=== PATIENT | female | born 1995 | race Caucasian/White ===

== ENCOUNTER 2018-04-23 18:13 | Emergency (ER) | payer OTHER ==
[2018-04-23 19:14] LABS: Urine Appearance Clear; Urine Blood Negative (Negative); Urine Color Straw; Urine Ketones Negative (Negative); Urine Protein Negative (Negative); Urine Specific Gravity 1.001 (1.010-1.030); Urine Urobilinogen Negative (Negative)
[2018-04-23 19:24] LABS: ABS Basophils 0 10^3/ul (0-0.2); ABS Eosinophils 0.1 10^3/ul (0-0.6); ABS Lymphocytes 2.2 10^3/ul (1.0-4.8); ABS Monocytes 0.9 10^3/ul (0-0.8); ABS Neutrophils 3.5 10^3/ul (1.5-7.7); ABS Nucleated RBC 0 10^3/ul; Eosinophil % 1.8 % (0-6); Hematocrit 43 % (35-47); Lymphocyte % 33.1 % (25-47); Mean Corpuscular HGB Conc 35 g/dl (31-36); Mean Corpuscular Hemoglobin 31 pg (27-31); Mean Corpuscular Volume 87 fL (80-97); Mean Platelet Volume 7.1 um3 (7.4-10.4); Nucleated Red Blood Cells % 0.1; Platelet Count 233 10^3/ul (150-450); Red Blood Count 4.93 10^6/ul (4.00-5.40); Red Cell Distribution Width 13 % (10.5-15); White Blood Count 6.7 10^3/ul (3.5-10.8)
--- NOTE | 2018-04-23 19:25 | ED ---
Abdominal Pain/Female - HPI Summary HPI Summary: 23-year-old female presents ER with complaints of 6 days of diarrhea. Denies any noticeable blood in diarrhea. Patient was seen in her primary care office where a stool culture was obtained and she was told she had red blood cells in her stool. States she's been having abdominal pain diffusely intermittently for the past 60s as well. States it's mainly lower. Denies any vaginal complaints. Denies sexual activity. Not on control. No urinary complaints. No fever or chills. Denies any nausea or vomiting. No low back pain. Nothing makes pain better or worse. Has not tried any medications. Denies any antibiotic use. Has not had any recent travel. No past medical history. No abdominal surgeries. - History of Current Complaint Chief Complaint: EDAbdPain Stated Complaint: DIARRHEA/ABD PAIN Time Seen by Provider: 04/23/18 18:53 Hx Obtained From: Patient Hx Last Menstrual Period: 15 days ago ?: No Onset/Duration: Sudden Onset, Lasting Days, Still Present Timing: Intermittent Episode Lasting Severity Initially: Mild Severity Currently: Mild Pain Intensity: 4 Pain Scale Used: 0-10 Numeric Location: Diffuse - Lower Radiates: No Character: Cramping Aggravating Factor(s): Nothing Alleviating Factor(s): Bowel Movement Associated Signs and Symptoms: Positive: Diarrhea. Negative: Fever, Back Pain, Constipation, Blood in Stool, Urinary Symptoms, Decreased Appetite, Vaginal Discharge, Nausea, Vomiting Allergies/Adverse Reactions: Allergies Allergy/AdvReac Type Severity Reaction Status Date / Time Latex, Natural Rubber Allergy Rash Verified 04/23/18 18:18 Home Medications: Home Medications Aspirin 81 mg CHEW TAB* [Aspirin Low Dose TAB*] 81 mg PO DAILY 04/23/18 [ History Confirmed 04/23/18] Cetirizine* [ZyrTEC 10 MG TAB*] 10 mg PO DAILY 04/23/18 [History Confirmed 04/23] Fluticasone NASAL SPRAY 50MCG* [Flonase NASAL SPRAY 50MCG*] 2 spray BOTH NARES DAILY 04/23/18 [History Confirmed 04/23/18] PMH/Surg Hx/FS Hx/Imm Hx Previously Healthy: - Emergency room out of the Endocrine/Hematology History: Denies: Hx Diabetes - Surgical History Surgery Procedure, Year, and Place: none - Immunization History Immunizations Up to Date: Yes Infectious Disease History: No Infectious Disease History: Denies: Traveled Outside the [place] in Last 30 Days - Family History Known Family History: Positive: None Family History: R & n/C - Social History Alcohol Use: None Hx Substance Use: No Substance Use Type: Reports: None Hx Tobacco Use: No Smoking Status (MU): Never Smoked Tobacco Review of Systems Constitutional: Negative Eyes: Negative Cardiovascular: Negative Respiratory: Negative Positive: Abdominal Pain, Diarrhea Musculoskeletal: Negative Skin: Negative All Other Systems Reviewed And Are Negative: Yes Physical Exam Triage Information Reviewed: Yes Vital Signs On Initial Exam: Initial Vitals Temp Pulse Resp BP Pulse Ox 99.1 F 86 12 126/78 99 04/23/18 18:15 04/23/18 18:15 04/23/18 18:15 04/23/18 18:15 04/23/18 18:15 Vital Signs Reviewed: Yes Appearance: Positive: Well-Appearing, No Pain Distress, Well-Nourished Skin: Positive: Warm, Skin Color Reflects Adequate Perfusion, Dry. Negative: Cold, Numb, Cyanosis @, Pale, Erythema @ Head/Face: Positive: Normal Head/Face Inspection Eyes: Positive: Conjunctiva Clear ENT: Positive: Pharynx normal Neck: Positive: Supple, Nontender Respiratory/Lung Sounds: Positive: Clear to Auscultation, Breath Sounds Present. Negative: Rales, Rhonchi, Wheezes Cardiovascular: Positive: Normal, RRR, Pulses are Symmetrical in both Upper and Lower Extremities. Negative: Murmur, Rub Abdomen Description: Positive: Soft, Other: - negative psoas, rebound, rovsings , murphys. mild discomfort/tenderness on palpation of lower abdomen diffuse. Negative: CVA Tenderness (R), CVA Tenderness (L), Distended, Guarding, McBurney' s Point Tenderness, Peritoneal Signs Bowel Sounds: Positive: Present Pelvic Exam: Positive: Other - refused, no symptoms or concerns Musculoskeletal: Positive: Normal, Strength/ROM Intact Neurological: Positive: Normal, Sensory/Motor Intact, Alert, Oriented to Person Place, Time, CN Intact II-III, Reflexes Intact, NV Bundle Intact Distally Diagnostics - Vital Signs Vital Signs Temp Pulse Resp BP Pulse Ox 04/23/18 18:15 99.1 F 86 12 126/78 99 - Laboratory Lab Results: Lab Results 04/23/18 04/23/18 Range/Units 19:02 19:05 WBC 6.7 (3.5-10.8) 10^3/ul RBC 4.93 (4.00-5.40) 10^6/ul Hgb 15.0 (12.0-16.0) g/dl Hct 43 (35-47) % MCV 87 (80-97) fL MCH 31 (27-31) pg MCHC 35 (31-36) g/dl RDW 13 (10.5-15) % Plt Count 233 (150-450) 10^3/ul MPV 7.1 L (7.4-10.4) um3 Neut % (Auto) 51.8 (38-83) % Lymph % (Auto) 33.1 (25-47) % [place] % (Auto) 13.0 H (0-7) % Eos % (Auto) 1.8 (0-6) % Baso % (Auto) 0.3 (0-2) % Absolute Neuts (auto) 3.5 (1.5-7.7) 10^3/ul Absolute Lymphs (auto) 2.2 (1.0-4.8) 10^3/ul Absolute Monos (auto) 0.9 H (0-0.8) 10^3/ul Absolute Eos (auto) 0.1 (0-0.6) 10^3/ul Absolute Basos (auto) 0 (0-0.2) 10^3/ul Absolute Nucleated RBC 0 10^3/ul Nucleated RBC % 0.1 Urine Color Straw Urine Appearance Clear Urine pH 7.0 (5-9) Ur Specific [place] 1.001 L (1.010-1.030) Urine Protein Negative (Negative) Urine Ketones Negative (Negative) Urine Blood Negative (Negative) Urine Nitrate Negative (Negative) Urine Bilirubin Negative (Negative) Urine Urobilinogen Negative (Negative) Ur Leukocyte Esterase Negative (Negative) Urine Glucose Negative (Negative) Result Diagrams: 04/23/18 19:05 04/23/18 19:05 Lab Statement: Any lab studies that have been ordered have been reviewed, and results considered in the medical decision making process. Re-Evaluation - Re-Evaluation First Eval Re-Evaluation Time: 19:30 Change: Unchanged - feeling fine. updated on labs and stool results. ready to be d/c Abdominal Pain Fem Course/Dx - Course Course Of Treatment: appears to be suffering from acute diarrhea. has not tried any medications. Has tried BRAT diet for the past 1-2 days. encouraged to continue as it may take a couple of days for relief. Given loperamide while in ED. Normal labs other than elevated CRP. No blood in stool, stool culture obtained. No risk factors for C diff or other obvious etiology/infection at this time. pending results. appears viral. will wait for results. probiotics, BRAT and loperamide. fluids. bowel rest. follow up pcp/GI. no further imaging or work up appeared necessary at this time, normal physical exam and vitals. normal labs other than elevated CRP. discussed case with Dr Brothers who agrees. patient is aware of worsening signs and symptoms to watch out for and to return to ED if occur. no other concerns at this time. - Diagnoses Differential Diagnosis: Positive: Appendicitis, Irritable Bowel Syndrome, Ovarian Cyst, Other - IBS, diarrhea, Provider Diagnoses: Diarrhea Discharge - Sign-Out/Discharge Documenting (check all that apply): Patient Departure - Discharge Plan Condition: Stable Disposition: HOME Prescriptions: Loperamide CAP* [Imodium CAP*] 2 mg PO Q4H PRN #12 cap PRN Reason: Diarrhea Patient Education Materials: Loperamide (By mouth), Acute Diarrhea (ED) Referrals: Jack Mcnamara MD [Medical Doctor] - Additional Instructions: increase fluid intake. continue BRAT diet. recommend taking daily probiotics call and make an appointment with GI if symptoms persist and do not improve. take medication as directed to help with diarrhea, DO NOT take more than 4 times a day. you will hear about culture results once obtained. any new or worsening symptoms such as fever, vomiting, increased pain, or blood in stool return to ER immediately - Billing Disposition and Condition Condition: STABLE Disposition: Home
[2018-04-23 19:37] LABS: EGFR Non-African American 93.2 (>60)
[2018-04-23] MEDS ORDERED: Loperamide CAP* 2 MG PO ONE (20:49)
[2018-04-23 21:18] VITALS: BP 122/69
== END 2018-04-23 21:18 | disposition home or self-care (01) ==
LOC: ED 18:13
DX: R19.7 Diarrhea, unspecified (principal)
CPT/HCPCS: 36415; 80053; 81003; 82272; 83605; 83690; 84702; 85025; 85652; 86140; 87045; 87046; 87077; 87328; 87329; 87493; 87899; 99283; A9270-GY